=== PATIENT | female | born 1970 | race Caucasian/White ===

== ENCOUNTER 2022-05-01 02:12 | Outpatient (CLI) | payer OTHER, SELFPAY ==
--- NOTE | 2022-05-01 | DI.US_ITS ---
Exam(s) US BREAST RT LIMITED MG MAMMO DIAGNOSTIC BI EXAM: MG MAMMO DIAGNOSTIC BI and U/S breast RT limited CLINICAL HISTORY: DIAGNOSTIC, RT LATERAL BREAST LUMP, N63.0. TECHNIQUE: Craniocaudal and mediolateral oblique Full Field Digital Mammography views of the bilater al breast with Computer Aided Diagnosis followed by Tomosynthesis and right breast ultrasound. COMPARISON: Comparison is made with prior examinations. FINDINGS: Mammography/Tomosynthesis: Masses/Architectural Distortion: There is again seen a well-circumscribed nodule at the 3 o'clock pos ition of the left breast. There is a biopsy clip again seen within the nodule. There is also well-c ircumscribed nodule seen in the upper right breast on the MLO view which is unchanged. Microcalcifictions: No suspicious pleomorphic-type are seen. Skin Thickening/Nipple Retraction: None. Limited right breast US: Echotexture: Normal appearance of the glandular tissue. Shadowing: No suspicious foci. Cyst: There are multiple simple cysts seen in the right breast. The largest is at the 10 o'clock pos ition 6 cm from the nipple and measures 2.2 x 1.5 x 1.7 cm. Solid lesions: At the 9 o'clock position 4 cm from the nipple there is a round hypoechoic well-circum scribed nodule present. At the 11 o'clock position of the right breast there is asymmetric breast ti ssue present. No posterior acoustic enhancement or shadowing is seen. Ductal dilation: None. IMPRESSION: 1. No deaf evidence of malignancy is noted. 2. A 3 month follow-up right breast ultrasound is recommended for re-evaluation. 3. The findings were discussed with the patient on the date of the examination. BI-RADS Category 3 - Probably Benign Finding: Recommend follow-up imaging in 3 months Breast Density - Category C - Heterogeneously dense Breast density Category C or D implies that the patient has dense breast tissue. Dense breast tissue can make it harder to find cancer on a mammogram. Dense breast tissue is also associated with an incr eased risk of breast cancer. This information about the result of the mammogram report was provided to the patient to raise their awareness. Use this report when you speak with the patient about their risks for breast cancer, which includes their family history. At that time, you may recommend additional screening tests (Ultrasoun d or MRI) as these tests may add significant information. A negative radiographic report should not delay biopsy if a dominant or clinically suspicious mass is present. Up to ten percent of cancers are not identified on mammography. A negative report may reinforce clinical impression. Adenosis and dense breasts may obscure an underlying neoplasm. False positive reports average 6 to 10%. Patient will receive a letter notifying them of these results.
== END 2022-05-01 02:32 ==
LOC: DI 02:12
PROVIDERS: Visit Provider Physician Assistant
DX: N60.11 Diffuse cystic mastopathy of right breast (principal); N63.11 Unspecified lump in the right breast, upper outer quadrant
CPT/HCPCS: 76642; 77062; 77066; G0279

== ENCOUNTER 2023-04-04 19:26 | Outpatient (REF) | payer OTHER, SELFPAY ==
[2023-04-04 19:19] LABS: Anion Gap 7.2 mmol/L (3-11); BUN 14 mg/dL (7-18); CO2 29.8 mmol/L (21.0-32.0); CREATININE 0.8 mg/dL (0.55-1.02); Calcium 9.5 mg/dL (8.5-10.1); Chloride 103 mmol/L (98-107); Estimated GFR 89.71 (mL/min/1.73m2); Glucose 92 mg/dL (74-106); Potassium 3.7 mmol/L (3.5-5.1); Sodium 140 mmol/L (136-145)
== END 2023-04-04 19:27 | disposition home or self-care (01) ==
LOC: NCHCN 19:26
PROVIDERS: PCP Physician Assistant; Visit Provider Physician Assistant
DX: I10 Essential (primary) hypertension (principal)
CPT/HCPCS: 80048

== ENCOUNTER → 2023-07-03 03:24 | Outpatient (CLI) | payer OTHER, SELFPAY ==
--- NOTE | 2023-07-03 | DI.MAMMO_ITS ---
Exam(s) MAMMO SCREENING EXAM: MAMMO SCREENING CLINICAL HISTORY: Z12.31 Encounter for screening mammogram for malig neop of breast. TECHNIQUE: Bilateral full field digital CC and MLO mammographic images were obtained with 3D tomosyn thesis and utilizing computer aided detection (CAD). COMPARISON: Prior mammograms were reviewed. Prior ultrasound examinations were also reviewed. FINDINGS: The fibroglandular tissue pattern is again noted be moderately dense, this somewhat decreasing the se nsitivity of the mammogram for finding hidden underlying lesions. There are no new obvious radiograph findings in the right breast. In the left breast there is again noted previously biopsied nodule which remains unchanged. However, on 3D MLO imaging there is also a suggestion of an additional nodule located 6 cm in from the nipple on the MLO view and measuring approximately 2 by 1.8 cm. Requires further imaging. There benign-appearing microcalcifications in both breasts There is no significant architectural distortion nor skin thickening-retraction. IMPRESSION: Dense bilateral fibroglandular tissue. No obvious radiographic evidence of malignancy in the right b reast. Left breast nodule as described above seen on the MLO view located approximately 6 cm in from the nipple. Spot compression view and ultrasound recommended. Indeed, given the density of this pa tient's fibroglandular tissue and prior cystic and non cystic findings in the opposite-right breast o n prior ultrasound examinations I recommend that this patient now undergo bilateral complete breast u ltrasound exam. BI-RADS Category 0 - Assessment Incomplete: Need additional imaging evaluation Breast Density - Category C - Heterogeneously dense Breast density Category C or D implies that the patient has dense breast tissue. Dense breast tissue can make it harder to find cancer on a mammogram. Dense breast tissue is also associated with an incr eased risk of breast cancer. This information about the result of the mammogram report was provided to the patient to raise their awareness. Use this report when you speak with the patient about their risks for breast cancer, which includes their family history. At that time, you may recommend additional screening tests (Ultrasoun d or MRI) as these tests may add significant information. A negative radiographic report should not delay biopsy if a dominant or clinically suspicious mass is present. Up to ten percent of cancers are not identified on mammography. A negative report may reinforce clinical impression. Adenosis and dense breasts may obscure an underlying neoplasm. False positive reports average 6 to 10%. Patient will receive a letter notifying them of these results.
== END ==
PROVIDERS: PCP Physician Assistant; Visit Provider Physician Assistant
DX: Z12.31 Encounter for screening mammogram for malignant neoplasm of breast (principal)
CPT/HCPCS: 77063; 77067

== ENCOUNTER → 2023-07-11 03:52 | Outpatient (CLI) | payer OTHER, SELFPAY ==
--- NOTE | 2023-07-11 | DI.US_ITS ---
Exam(s) MG MAMMO SCREEN CALL BACK UNI US BREAST LT COMPLETE US BREAST RT COMPLETE EXAM: MG MAMMO SCREEN CALL BACK UNI-LEFT AND COMPLETE BILATERAL BREAST ULTRASOUND CLINICAL HISTORY: R92.8 abn mammogram, left breast nodule. TECHNIQUE: Unilateral LEFT BREAST spot mammographic images obtained with 3D tomosynthesisand [employer] ng computer aided detection (CAD). . Complete BILATERAL breast Ultrasound was also performed, including all 4 quadrants, the retroareolar regions, and both axillary regions COMPARISON: Prior mammograms were reviewed. Prior ultrasound examinations were also reviewed, most recent being July 2022.. This additional imaging was performed due to findings described on the recent screening mammogram of 07/03/2023. This patient underwent prior core biopsy of a nodule at the 3 o'clock position in the left breast per formed with ultrasound guidance on 12/09/2018 at [facility] which was negative for malign nidia, apparently a fibroadenoma according to the patient. FINDINGS: DIAGNOSTIC MAMMOGRAM: Additional mammographic views performed todaydoes not completely dissipate this nodule. We proceeded with ultrasound. COMPLETE BILATERAL BREAST ULTRASOUND: LEFT BREAST ULTRASOUND: The previously biopsied solid lobulated nodule is noted and contains a biopsy marker clip seen on ult rasound, as evident on the mammogram. This does not appear to have significantly increased in size f rom previous outside ultrasound examination. Otherwise, in the left breast there are multiple benign microcysts at the 1 o'clock position. At the 2 o'clock position there is a 1.6 cm benign cyst. At the 3 o'clock position there is a 7 x 4 millimeter hemorrhagic microcyst. At the 4 o'clock position there is a lobulated wider than taller nodular density measuring 1.8 x 1.1 cm with increased through transmission, either hemorrhagic microcyst or fibroadenoma. At the 5 o'clock position there is a previously biopsied nodule which contains a biopsy marker clip ( this was previously registered at 3:30 position at outside institution). At the 6 o'clock position there is a 1.1 x 0.9 cm benign cyst. At the 9 o'clock position there is a 5 millimeter benign microcyst. At the 11 o'clock position there are few deep benign cysts. Scanning of the left axilla is negative for significant adenopathy. RIGHT BREAST ULTRASOUND: At the 12 o'clock position there is a benign cyst measuring 1.3 x 1.0 cm, unchanged from the prior ul trasound examination of July 2022. *At the 12-1 o'clock position there is a wider than taller 7 x 4 mm nodule with internal echoes and i ncreased through transmission, not previously evident. This is probably a hemorrhagic microcyst. *At the 8 o'clock position there is a 2.2 x 1.0 cm wider than taller slightly lobulated nodule which exhibits uniform increased through transmission but also internal echoes, either a hemorrhagic cyst o r fibroadenoma. This is unchanged in size from ultrasound of 1 year ago. *At the 8 o'clock position there is another round 1.0 by 1.0 cm nodule with uniform increased through transmission and internal echoes, probably a hemorrhagic cyst. At the 9 o'clock position there is a benign microcyst measuring 9 x 7 mm. *At the 10-11 o'clock position the previously described 8 x 6 x 7 mm lobulated nodular density is aga in noted, unchanged in size and configuration and exhibiting slightly increased through transmission. No decreased through transmission. Slightly wider than taller. At the 11 o'clock position there also 2 9 cysts measuring 9 and 10 mm. Scanning of the right axilla is negative for significant adenopathy. IMPRESSION: 1. Multiple findings in both breasts, as described individually above, on ultrasound examination, mo st of which are not visible on 3D mammography. 2. 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 Appropriate follow-up is repeat bilateral complete breast ultrasound examination in 6 months time, m ayadly to revisit the right breast findings at 12 o'clock and 8 o'clock and 11 o'clock positions. Als o to revisit the left breast finding at 4 o'clock position. The patient was informed of these findings and recommendations by myself prior to leaving the departm ent today. BI-RADS Category 3 - 6 month - Probably Benign Finding: Recommend follow-up BILATERAL COMPLETE BREAST ULTRASOUND in 6 months Breast Density - Category C - Heterogeneously dense Breast density Category C or D implies that the patient has dense breast tissue. Dense breast tissue can make it harder to find cancer on a mammogram. Dense breast tissue is also associated with an incr eased risk of breast cancer. This information about the result of the mammogram report was provided to the patient to raise their awareness. Use this report when you speak with the patient about their risks for breast cancer, which includes their family history. At that time, you may recommend additional screening tests (Ultrasoun d or MRI) as these tests may add significant information. A negative radiographic report should not delay biopsy if a dominant or clinically suspicious mass is present. Up to ten percent of cancers are not identified on mammography. A negative report may reinforce clinical impression. Adenosis and dense breasts may obscure an underlying neoplasm. False positive reports average 6 to 10%. Patient will receive a letter notifying them of these results.
== END ==
PROVIDERS: PCP Physician Assistant; Visit Provider Physician Assistant
DX: Z12.31 Encounter for screening mammogram for malignant neoplasm of breast (principal); R92.8 Other abnormal and inconclusive findings on diagnostic imaging of breast; N60.12 Diffuse cystic mastopathy of left breast; N63.23 Unspecified lump in the left breast, lower outer quadrant; N60.11 Diffuse cystic mastopathy of right breast; N63.11 Unspecified lump in the right breast, upper outer quadrant; N63.13 Unspecified lump in the right breast, lower outer quadrant
CPT/HCPCS: 76642; 77063; 77067

== ENCOUNTER 2024-07-02 15:19 | Outpatient (REF) | payer OTHER, SELFPAY ==
[2024-07-02 16:27] LABS: HCT 37.4 % (36.0-46.0); HGB 12.9 g/dL (11.2-15.7); MCH 30.4 pg (27.0-33.0); MCHC 34.5 % (32.0-36.0); MCV 88 fL (80-95); MPV 10.5 fL (8.0-11.0); Platelet Count 386 10^3/uL (130-400); RBC 4.24 10^6/uL (3.93-5.22); RDW 12.4 % (11.7-14.6); RDW-SD 40.1 fL; WBC 7.44 10^3/uL (4.4-10.8)
[2024-07-02 16:52] LABS: Anion Gap 10.4 mmol/L (3-11); BUN 14 mg/dL (7-18); CO2 27.6 mmol/L (21.0-32.0); CREATININE 0.9 mg/dL (0.55-1.02); Calcium 9.5 mg/dL (8.5-10.1); Calculated LDL 113 mg/dL (<100); Chloride 106 mmol/L (98-107); Cholesterol 188 mg/dL (<200); Glucose 75 mg/dL (74-106); HDL Cholesterol 60 mg/dL (>or=50); Potassium 4.3 mmol/L (3.5-5.1); Sodium 144 mmol/L (136-145); Triglyceride 79 mg/dL (<150)
[2024-07-02 19:38] LABS: Hemoglobin A1C 4.9 % (<5.7)
== END 2024-07-02 15:20 | disposition home or self-care (01) ==
LOC: NCHCN 15:19
PROVIDERS: PCP Physician Assistant; Visit Provider Physician Assistant
DX: Z13.1 Encounter for screening for diabetes mellitus (principal); I10 Essential (primary) hypertension
CPT/HCPCS: 80048; 80061; 85027; 83036

== ENCOUNTER 2024-07-15 01:23 | Outpatient (CLI) | payer OTHER, SELFPAY ==
--- NOTE | 2024-07-15 | DI.US_ITS ---
Exam(s) US BREAST LT COMPLETE US BREAST RT COMPLETE MG MAMMO SCREENING EXAM: MG MAMMO SCREENING CLINICAL HISTORY: Screening; R92.8-other abnl and inconclusive findings on DI of breast. COMPARISON: US US BREAST LT COMPLETE from 07/15/2024 US US BREAST RT COMPLETE from 07/15/2024 TECHNIQUE: Craniocaudal and mediolateral oblique Full Field Digital Mammography views of both breast s with Computer Aided Diagnosis followed by Tomosynthesis and bilateral breast ultrasound. FINDINGS: Mammography/Tomosynthesis: Masses: Stable circumscribed nodule with biopsy clip in the lateral left breast. Architectural Distortion: None seen. Microcalcifications: No suspicious pleomorphic-type are seen. Skin Thickening/Nipple Retraction: None. Right breast US: Echotexture: Normal appearance of the glandular tissue. Shadowing: No suspicious foci. Cyst: 2.3 x 1.2 by 1.7 centimeter hemorrhagic 6 o'clock position. Other smaller cysts and hemorrhagic cysts. No suspicious masses. Solid lesions: None seen. Ductal dilation: None. Left breast US: Echotexture: Normal appearance of the glandular tissue. Shadowing: No suspicious foci. Cyst: 13 millimeter cyst 3 o'clock position 4 cm from the nipple. 11 by 8 x 11 millimeter solid nodul e with biopsy marker clip noted in the 5 o'clock position 6 cm from the nipple. Other smaller cysts. No suspicious masses. Solid lesions: None seen. Ductal dilation: None. IMPRESSION: 1. No evidence of malignancy is noted. Multiple bilateral simple and hemorrhagic cysts. Stable solid nodule biopsy marker clip in the lateral left breast. 2. Unless there is more urgent need, follow-up screening mammography is recommended, as per [employer] guidelines. BI-RADS Category 2 - Benign Findings Breast Density - Category C - Heterogeneously dense Breast density category C or D implies that the patient has dense breast tissue. Dense breast tissue is very common and is not abnormal but dense breast tissue can make it harder to find cancer on a ma mmogram. Also, dense breast tissue may increase their breast cancer risk. This information about the result of the mammogram report was provided to the patient to raise their awareness. Use this report when you speak with the patient about their risks for breast cancer, which includes their family hist ory. At that time, you may recommend for more screening tests (Ultrasound or MRI) as they might be us eful based on their risk. A negative radiographic report should not delay biopsy if a dominant or clinically suspicious mass is present. Up to ten percent of cancers are not identified on mammography. A negative report may reinforce clinical impression. Adenosis and dense breasts may obscure an underlying neoplasm. False positive reports average 6 to 10%. Patient will receive a letter notifying them of these results.
== END 2024-07-15 01:43 ==
LOC: DI 01:23
PROVIDERS: PCP Physician Assistant; Visit Provider Physician Assistant
DX: Z12.31 Encounter for screening mammogram for malignant neoplasm of breast (principal); R92.8 Other abnormal and inconclusive findings on diagnostic imaging of breast; R92.333 Mammographic heterogeneous density, bilateral breasts; D24.2 Benign neoplasm of left breast
CPT/HCPCS: 76642; 77063; 77067